=== PATIENT | male | born 1955 | race Caucasian/White ===

== ENCOUNTER 2017-09-27 09:56 | Inpatient (IN) | payer OTHER ==
[~2017-09-27] VITALS: Ht 177.8 cm; Wt 104.9 kg
--- NOTE | ~2017-09-27 | HC ---
[facility] [place] [address] CONSULTATION Name: QUINCY CORTES Room #: 241-P ADM IN M.R.#: [id number] Admission: 09/27/17 Attend Phys: Jose Bryant MD Discharge: Date of : 57 Report #: [id number] THIS REPORT FOR: //name// CC: JOSE DE JESUS physician/PCP Jose Bryant DATE OF SERVICE: 10/01/2017 REASON FOR EVALUATION: Bacteremia. HISTORY OF PRESENT ILLNESS: The patient is a 62-year-old admitted with substernal chest pain of several hours duration on 09/27/2017. He was found to be hyperthyroid along with stable coronary vascular stenosis that was felt to be amenable to medical management. He has had previous stents. Continued to have chest pain. CT scan imaging failed to identify any cause of his pain. He does have some bronchiectasis without acute infiltrate. Echocardiogram and CT showed no evidence of pericarditis. The patient has failed to improve with nonsteroidal anti-inflammatories and corticosteroids. Also, was given colchicine. Hyperthyroidism is being managed by endocrinology service. He is on metoprolol, corticosteroids, and methimazole. He did undergo a contrast imaging without issue. The patient denies any fever, but he has had occasional chills and sweats. He remains fairly nervous about his condition. No cough or sputum production. No nausea, vomiting or diarrhea. No dysuria or frequency. He has had no abdominal discomfort. During his evaluation, blood cultures were done, showing Gram-positive cocci. Identification is pending. He was started on vancomycin yesterday. ALLERGIES: CONTRAST DYE and PENICILLIN. MEDICATIONS: As noted on his MAR including the vancomycin. Also, on Solu-Medrol. PAST MEDICAL HISTORY: Coronary stents, chronic back pain, back surgery, colon resection, cholecystectomy, arthroscopic knee surgeries, hip surgery, and SVT. FAMILY HISTORY: Noncontributory. SOCIAL HISTORY: Past smoker, no significant alcohol intake. REVIEW OF SYSTEMS: Ten-point review was negative other than what is described above. Does have some anxiety associated with his disease currently, but no longstanding issues of anxiety or depression. PHYSICAL EXAMINATION: VITAL SIGNS: He is afebrile, hemodynamically stable. GENERAL: Alert, cooperative, in no acute distress. [address] [address] CONSULTATION Name: QUINCY CORTES Room #: 241-P [facility] IN M.R.#: [id number] Admission: 09/27/17 Attend Phys: Jose Bryant MD Discharge: Date of : 57 Report #: [id number] SKIN: Unremarkable. LYMPH: Unremarkable. EYES: Unremarkable. MOUTH: Unremarkable. NECK: Supple. He had some fullness in the anterior neck with no tenderness and no adenopathy. No mass. LUNGS: Clear. No adventitious sounds. He did have pain in the left chest on deep inspiration. I did not appreciate any rub. HEART: Normal with normal carotid upstrokes. No murmur, gallop, or rub. ABDOMEN: Soft, nontender, no hepatosplenomegaly or mass. No pulsatile masses. He was moderately obese. EXTREMITIES: Unremarkable. NEUROLOGIC: Nonfocal. GENITAL: Not performed. RECTAL: Not performed. PSYCHIATRIC: Mood was appropriate, although was anxious about his condition. LABORATORY STUDIES: Sodium 141, potassium 3.3, bicarbonate 28, creatinine 1.1, alkaline phosphatase 130, ALT 34. Hemoglobin 14.8, white count 9.4, platelet count was 176,000. Sed rate 4. TSH 0.011. Blood cultures as noted. CT scan of the chest unremarkable except for basilar atelectasis and central bronchiectasis without consolidation. Images were reviewed and agreed with impression. IMPRESSION: 1. Noncardiac chest pain. 2. Bacteremia. I am suspecting contaminant at this time, but will need to await identification. So far, no evidence of subacute bacterial endocarditis. It was 1/2 cultures positive. No other findings of end-organ infection at this time. 3. The pleuritic chest pain seemed out of proportion to his exam. I would question whether this is musculoskeletal in nature. Concerning that steroids and anti-inflammatory medications have not resolved this issue. He has had full cardiac workup with no evidence of ischemia. 4. Hyperthyroidism. I would question whether some of his symptoms may be related to this. RECOMMENDATION: We will continue vancomycin pending culture results. We will await identification. Continue workup and management of his chest discomfort. <ELECTRONICALLY SIGNED> By: Wally Ruiz MD 10/02/172002 1121 1609 Wally Ruiz MD /nt
--- NOTE | ~2017-09-27 | CATHLAB ---
[place] [address] [facility] [facility] [place] [address] INVASIVE PROCEDURE REPORT Name: QUINCY CORTES Room #: 202-P ADM IN M.R.#: [id number] Admission: 09/27/17 Attend Phys: Jose Bryant, Discharge: Date of : 57 Date of Service: 09/28/17 1124 Report #: [id number] THIS REPORT FOR: //name// APPROVED REPORT Study performed: 09/28/2017 07:58:48 Patient Details Patient Status: In-Patient Room #: The patient is a 62 year-old male Event Personnel Ben Awan Lan Specialist, Lionel Izaguirre RN, Shimon Rice RN RN, Annabella Ho Sandifer, David Monitor Procedures Performed Left Heart Cath w/or w/o Coronaries [id number] [facility] Indication Abnormal ECG, Arrhythmia, Dyspnea, Unstable angina , Chest pain Risk Factors Hypercholesterolemia, Coronary Artery DiseaseHypertension Previous Procedures/Diagnoses Previous PCI Procedure Narrative The Right Groin^ was infiltrated with 1% Lidocaine subcutaneous anesthesia. A PINNACLE 4FR Sheath #[id number] sheath was inserted into the RFA^. Coronary angiography was performed using coronary diagnostic catheters. The right coronary system was accessed and visualized with a JR4 catheter. The left coronary system was accessed and visualized with a JL4 catheter. The left ventricle was accessed and visualized with a 9IGTAIL catheter. Left ventricular/Aortic Valve gradient assessed via catheter pullback. Left ventriculogram was performed in 30 degree projection. Hemostasis was obtained with manual pressure following sheath removal without any complications. The patient tolerated the procedure well and there were no complications associated with the procedure. There was no hematoma. Intraoperative Conscious Sedation Sedation start time: 8.22 Case end Time: 9.00 [facility] [address] [place] [address] INVASIVE PROCEDURE REPORT Name: QUINCY CORTES Room #: 202-P [facility] IN .R.#: [id number] Admission: 09/27/17 Attend Phys: Jose Bryant, Discharge: Date of : 57 Date of Service: 09/28/17 1124 Report #: [id number] Versed 1.5 mg Fluoro Time: 2.48 minutes Dose: DAP 6100 cGycm2 806 mGy Contrast Type and Amount: Visipaque 80 ml Coronary Angiography The patient's coronary anatomy is right dominant. Diagnostic Cath Left Main Patent vessel, no flow-limiting lesions. LAD There is mild to moderate diffuse disease in the mid segment, 30-40%. Diagonal 1 Small-caliber vessel, no flow-limiting lesions. Diagonal 2 There is a patent stent in the proximal segment, with mild restenosis. Circumflex Supplies 2 OM vessels. OM1 Small-caliber vessel, mild disease in the proximal segment. OM2 Moderate size caliber vessel, mild disease in the proximal segment. Right Coronary Dominant vessel with mild to moderate disease in the proximal segment, 30-40%. R PDA Patent vessel, no flow-limiting lesions. RPLV Patent vessel, no flow-limiting lesions. Left Ventriculography The left ventricle is normal in size with normal contractility. The left ventricular ejection fraction is estimated to be >55%. Hemodynamics The aortic pressure is 129/83 mmHg with a mean of 63 mmHg. The left ventricular pressure is 127/21 mmHg with a mean of mmHg. The left ventricular end diastolic pressure is 37 mmHg. There was no gradient across the aortic valve upon pullback. Pullback from the left ventricle to the aorta revealed no gradient across the aortic valve. Conclusion 1. Patent stent in the second diagonal artery. 2. Mild to moderate nonobstructive CAD. [facility] [address] [place] [address] INVASIVE PROCEDURE REPORT Name: QUINCY CORTES Room #: 202-P ADM IN M.R.#: [id number] Admission: 09/27/17 Attend Phys: Jose Bryant, Discharge: Date of : 57 Date of Service: 09/28/17 1124 Report #: [id number] 3. Normal LV systolic function. 4. Recommend aggressive risk factor management. <ELECTRONICALLY SIGNED> By: Ben Awan MD 09/28/17 1124 1124 112 Ben Awan MD /NOVA
--- NOTE | ~2017-09-27 | EKG ---
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 : 1955 Requested By: Kyler Tidwell Order Number: [id number] MD: Vernon Garcia Measurements Intervals [place] Rate: 161 P: 102 MD: 77 QRS: 67 QRSD: 100 T: 9 QT: 303 QTc: 496 Interpretive Statements Supraventricular tachycardia Repolarization abnormality, prob rate related Artifact in multiplelead(s) Compared to ECG 01/21/2015 06:45:54 Sinus tachycardia no longer present nonspecific change in the ST and T-wave segments Electronically Signed On 09-27-2017 16:52:32 CDT by Vernon Garcia [email or web address] <ELECTRONICALLY SIGNED> By: Vernon Garcia MD, [facility] 09/27/17 1652 0959 0959 Vernon Garcia MD, [facility] /EPI
--- NOTE | ~2017-09-27 | EKG ---
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 : 1955 Requested By: Vernon Garcia Order Number: [id number] MD: Vernon Garcia Measurements Intervals [place] Rate: 103 P: 35 [place]: 111 QRS: 13 QRSD: 90 T: 6 QT: 349 QTc: 457 Interpretive Statements Sinus tachycardia Early R-wave progression Compared to ECG 09/28/2017 07:16:15 Sinus rhythm no longer present Electronically Signed On 09-30-2017 13:55:28 CDT by Vernon Garcia [email or web address] <ELECTRONICALLY SIGNED> By: Vernon Garcia MD, [facility] 09/30/17 1355 08 08 Vernon Garcia MD, [facility] /EPI
--- NOTE | ~2017-09-27 | 2DMMODE ---
[facility] [address] [place] [address] 2 D/M-MODE ECHOCARDIOGRAM Name: QUINCY CORTES Room #: 202-P ADM IN M.R.#: [id number] Admission: 09/27/17 Attend Phys: Jose Bryant, Discharge: Date of : 57 Date of Service: 09/29/17 1302 Report #: [id number] THIS REPORT FOR: //name// APPROVED REPORT Study performed: 09/29/2017 10:26:32 EXAM: Comprehensive 2D, Doppler, and color-flow Echocardiogram Patient Location: Bedside Room #: 202 Status: on-call BSA: 2.27 HR: 107 bpm Rhythm: NSR Other Information Study Quality: Adequate Technically limited study due to pt. refused to complete the echo. Risk Factors: Cardiac Risk Factors: Hyperlipidemia, HTN Indications Dyspnea CAD Chest Pain 2D Dimensions LVEF(%): 60.00 (>50%) IVSd: 12.85 (7-11mm) LVOT Diam: 22.00 (18-24mm) LVDd: 50.92 mm PWd: 13.00 (7-11mm) Ascending Ao: 29.39 (22-36mm) LVDs: 30.26 (25-40mm) Aortic Root: 29.63 mm LV Single Plane 4CH: 59.42 % LV Single Plane 2CH: 55.00 % Omalley's LVEF: 57.21 % Biplane EF: 55.1 % Volumes Left Atrial Volume (Systole) Single Plane 4CH: 34.89 mL Single Plane 2CH: 50.48 mL LA ESV Index: 20.00 mL/m2 [facility] [address] [address] 2 D/M-MODE ECHOCARDIOGRAM Name: QUINCY CORTES Room #: 202-P ADM IN ..#: [id number] Admission: 09/27/17 Attend Phys: Jose Bryant, Discharge: Date of : 57 Date of Service: 09/29/17 1302 Report #: [id number] Pulmonary Valve PV Peak Lb.: 1.21 m/s PV Peak Gr.: 5.90 mmHg Left Ventricle The left ventricle is normal size. There is normal LV segmental wall motion. Mild to moderate concentric left ventricular hypertrophy. Left ventricular systolic function is normal. The left ventricular ejection fraction is within the normal range. LVEF is 55-60%. This study is not technically sufficient to allow evaluation of the LV diastolic function. Right Ventricle The right ventricle is normal size. The right ventricular systolic function is normal. Atria The left atrium size is normal. The right atrium size is normal. Aortic Valve The aortic valve mildly sclerotic, trileaflet No aortic regurgitation is present. There is no aortic valvular stenosis. Mitral Valve The mitral valve is normal in structure. Trace mitral regurgitation. No evidence of mitral valve stenosis. Tricuspid Valve The tricuspid valve is normal in structure, but was not fully evaluated. Pulmonic Valve The pulmonary valve is normal in structure. There is no pulmonic valvular regurgitation. Great Vessels The aortic root is normal in size. The IVC was not visualized. Pericardium The pericardium was not fully evaluated. No pericardial effusion. <Conclusion> Left ventricular systolic function is normal. LVEF is 55-60%. [facility] [place] [address] 2 D/M-MODE ECHOCARDIOGRAM Name: QUINCY CORTES Room #: 202-P ADM IN M.R.#: [id number] Admission: 09/27/17 Attend Phys: Jose Bryant, Discharge: Date of : 57 Date of Service: 09/29/17 1302 Report #: [id number] There is normal LV segmental wall motion. The aortic valve mildly sclerotic, trileaflet. No aortic regurgitation or stenosis The mitral valve is normal in structure. Trace mitral regurgitation. The pericardium was not fully evaluated. No pericardial effusion on limited exam. <ELECTRONICALLY SIGNED> By: Vernon Garcia MD, [facility] 09/29/17 1302 1302 1302 Vernon Garcia MD, [facility] /INF
--- NOTE | ~2017-09-27 | EKG ---
[address] [address] ELECTROCARDIOGRAM REPORT Name: QUINCY CORTES Room #: 241-P ADM IN M.R.#: [id number] Admission: 09/27/17 Attend Phys: Jose Bryant MD Discharge: Date of : 57 Report #: [id number] THIS REPORT FOR: //name// [facility] Test Date: 2017-10-03 Test Time: 13:29:55 Pat Name: QUINCY CORTES Department: Room: 241 P Gender: M General Manager: Susan EDWARDS : 1955 Requested By: Jose Bryant Order Number: [id number] MD: Vernon Garcia Measurements Intervals [place] Rate: 98 P: 67 [place]: 123 QRS: 44 QRSD: 86 T: 34 QT: 353 QTc: 451 Interpretive Statements Sinus rhythm Abnormal R-wave progression, early transition Minimal ST depression, anterolateral leads Baseline wander in lead(s) V2 Compared to ECG 09/30/2017 08:01:15 No significant change was found Electronically Signed On 10-03-2017 17:22:45 CDT by Vernon Garcia [email or web address] <ELECTRONICALLY SIGNED> By: Vernon Garcia MD, [facility] 10/03/17 1722 1329 1329 Vernon Garcia MD, [facility] /EPI
--- NOTE | ~2017-09-27 | EKG ---
[address] [address] ELECTROCARDIOGRAM REPORT Name: QUINCY CORTES Room #: 211-P ADM IN M.R.#: [id number] Admission: 09/27/17 Attend Phys: Jose Bryant MD Discharge: Date of : 57 Report #: [id number] THIS REPORT FOR: //name// [facility] Test Date: 2017-09-27 Test Time: 17:22:50 Pat Name: QUINCY CORTES Department: Room: 211 P Gender: M Configuration Developer: Karen MARTINEZ : 1955 Requested By: Suleiman Gibson Order Number: [id number] MD: Vernon Garcia Measurements Intervals [place] Rate: 99 P: 47 [place]: 135 QRS: 41 QRSD: 81 T: 43 QT: 345 QTc: 443 Interpretive Statements Sinus rhythm Borderline T wave abnormalities Baseline wander in lead(s) V3 Compared to ECG 09/27/2017 09:59:04 ST segment abnormality less pronounced Supraventricular tachycardia no longer present Electronically Signed On 09-28-2017 8:08:13 CDT by Vernon Garcia [email or web address] <ELECTRONICALLY SIGNED> By: Vernon Garcia MD, [facility] 09/28/17 0808 172 172 Vernon Garcia MD, [facility] /EPI
--- NOTE | ~2017-09-27 | HC ---
[facility] [place] [address] CONSULTATION Name: QUINCY CORTES Room #: 211-P ADM IN M.R.#: [id number] Admission: 09/27/17 Attend Phys: Jose Bryant MD Discharge: Date of : 57 Report #: [id number] THIS REPORT FOR: //name// CC: JOSE DE JESUS physician/PCP Jose Bryant DATE OF SERVICE: 09/27/2017 ENDOCRINE CONSULTATION LOCATION: [facility], room 211. This dictation will be done in a problem-oriented fashion. SUBJECTIVE: Acute admission for this 62-year-old white male admitted with chest pain, tachycardia and hypertension. The patient was discovered to have abnormal thyroid function studies. Retrospectively, he was noted to have a suppressed TSH several years ago, but he is not aware of any further evaluation or therapy. He has a mother who has some sort of unknown thyroid element, most likely hypothyroidism for which she takes replacement. The patient denies any changes in irritability, vision, weight, insomnia, tachycardia, bowel habits, etc. and has generally been clinically euthyroid. He does have occasional episodes of anxiety with a feeling of his heart beating in his chest, but this is usually during rodeo competition. He had 1 episode starting yesterday evening associated with chest pain that also was the cause for admission. Otherwise, he has no pertinent endocrine history, but he has been premedicated and is a very poor historian. His significant other offers no other further clinical information to report at this time. The patient is currently not on beta blockers. OBJECTIVE: LABORATORY DATA: TSH 0.01, free T4 from January 2015 was 1.3. At that time, TSH was 0.028. PHYSICAL EXAMINATION: GENERAL: Well-nourished, well-developed 62-year-old white male, in no acute distress. VITAL SIGNS: The patient is afebrile, heart rate 120, blood pressure 165/82. SKIN: Warm and moist. HEENT: PERRL. There is no evident ophthalmopathy. Deep tendon reflexes are 2+ and equal bilaterally without tremor. The thyroid is diffusely slightly enlarged without nodularity or adenopathy and moves well with deglutition. The remainder of the exam is difficult due to lack of patient cooperation, but [address] [address] CONSULTATION Name: QUINCY CORTES Room #: 211-P [facility] IN M.R.#: [id number] Admission: 09/27/17 Attend Phys: Jose Bryant MD Discharge: Date of : 57 Report #: [id number] appears to be clinically euthyroid. ASSESSMENT: Abnormal thyroid function studies, most likely indicating hyperthyroidism. PLAN: 1. I have discussed as best I can particularly with his significant other the physiology, pathophysiology, diagnosis and treatment of thyroid disease including the three methods of therapy (surgery, radioiodine, antithyroid drugs). 2. At this time, surgery is obviously not indicated. Radioiodine would be the patient's best choice; however, he is scheduled for cardiac catheterization in the morning during which he will receive iodine contrast obviating the ability to either diagnose or treat thyroid conditions with radioiodine, therefore antithyroid drugs are the only available therapy, but they do not do anything to inhibit preformed thyroid hormone and will take months to become effective. Meanwhile, high dose beta blockers and also the corticosteroids used for prevention of allergic reaction with tomorrow's catheterization are the only appropriate therapies to reduce T4-T3 conversion and increase safety of the patient's diagnostic and therapeutic maneuvers while he is hyperthyroid. Thank you very much for this consultation. I will continue to follow the patient with you for diagnosis and management of hyperthyroidism. <ELECTRONICALLY SIGNED> By: Fred Wells MD 09/27/17 2218 1527 21 Fred Wells MD /nt
--- NOTE | ~2017-09-27 | HC ---
[facility] [place] [address] CONSULTATION Name: QUINCY CORTES Room #: 241-P [facility] IN M.R.#: [id number] Admission: 09/27/17 Attend Phys: Jose Bryant MD Discharge: Date of : 57 Report #: [id number] THIS REPORT FOR: //name// CC: JOSE DE JESUS physician/PCP Jose Bryant DATE OF SERVICE: 10/03/2017 REASON FOR CONSULTATION: Hypertension. REASON FOR PRESENTATION: Chest pain. HISTORY OF PRESENT ILLNESS: A 62-year-old with sudden onset of chest pain before his presentation to the Emergency Room. He carries a diagnosis of coronary artery disease with stent back in [address] [facility]. Chest pain was described as stabbing with radiation to the shoulder blade. This also has gone down his left upper arm. No jaw or neck radiation. He tells me that he is not taking any blood pressure medications as his blood pressure started to get better without any medications; however, it is listed that he has been taking diltiazem and carvedilol because of some SVT in the past. When the patient presented to the emergency room, his blood pressure was elevated at 180/126. He continues to have major issues with his blood pressure. He had extensive workup for his chest pain including CT abdomen and pelvis, cardiac catheterization and most of those were nonrevealing. He was found to have thyroid disease, and endocrinology was consulted. He is not aware of any previous kidney problems. He has never been told that he has malignant hypertension in the past. He does have history of SVT in the past. Thyroid studies were consistent with hyperparathyroidism. Blood pressure has been fluctuating and I am being asked to evaluate and assist with his blood pressure issues. He continues to have major issues with his chest pain. Workup has been unrevealing so far. Pheochromocytoma workup has been sent. He is currently maintained on lisinopril and metoprolol along with the [facility]. PAST MEDICAL HISTORY: 1. Hypertension. 2. Coronary artery disease. 3. Hyperthyroidism. 4. History of cardiac stents. 5. History of colon resections. 6. Two back surgeries. 7. Cholecystectomy. 9. Arthroscopic evaluation of bilateral knee. 10. SVT. 11. Chronic pain. REVIEW OF SYSTEMS: [address] [address] CONSULTATION Name: QUINCY CORTES Room #: 241-P [facility] IN M.R.#: [id number] Admission: 09/27/17 Attend Phys: Jose Bryant MD Discharge: Date of : 57 Report #: [id number] GENERAL: No fever or chills. CARDIOVASCULAR: As per the history of present illness. PULMONARY: No cough or hemoptysis. GASTROINTESTINAL: Occasional nausea. GENITOURINARY: No frequency, no urgency. MUSCULOSKELETAL: Back pain. SKIN: No rash or ulcerations. NEUROLOGICAL: Fatigue and weakness, but no dizziness. HEMATOLOGICAL AND LYMPHATIC: No epistaxis. No easy bruisability. FAMILY HISTORY: Significant for hypertension. PHYSICAL EXAMINATION: GENERAL: Alert, oriented, in no apparent distress. VITAL SIGNS: Blood pressure is now 141/92. HEAD AND NECK: No jugular venous distention or bruit or thyromegaly. CHEST: Slight flushed anterior chest wall. No crackles. CARDIOVASCULAR: Regular, with no rub detected. ABDOMEN: Soft, nontender with no hepatosplenomegaly. LOWER EXTREMITIES: No edema with intact peripheral pulses. LABORATORY DATA: Reviewed. White blood cell count 13. Chemistry: Sodium 145, potassium 3.6, there were three low potassium readings. Random aldosterone has not been sent. Plasma metanephrine pending. ASSESSMENT, IMPRESSION AND PLAN: 1. Hypertension. 2. Hyperthyroidism. 3. Chest pain with unknown source. 4. Chronic disease. 5. We will start the appropriate investigation for his hypertension including renin aldosterone. Doppler of both kidneys. 6. Pheochromocytoma workup, though I doubt he will have any of those. 7. Currently maintained on an angiotensin converting enzyme inhibitor, a beta deshawn, Norvasc and those seem to be appropriate for now. 8. Obtain urine studies. 9. The patient's symptoms are not fitting any specific pathological process. I will send connective tissue disorders along with vasculitis given his nonspecific symptoms. 10. Urine drug screen. 11. Urine protein to creatinine ratio. 12. Avoid p.r.n. medication for his hypertension. 13. Low salt diet. [address] [address] CONSULTATION Name: QUINCY CORTES Room #: 241-P [facility] IN M.R.#: [id number] Admission: 09/27/17 Attend Phys: Jose Bryant MD Discharge: Date of : 57 Report #: [id number] 14. We will defer the management of his thyroid issues to the endocrinology team. By: 1033 0202 Emily Hawley MD /nt
--- NOTE | ~2017-09-27 | EKG ---
[address] [address] ELECTROCARDIOGRAM REPORT Name: QUINCY CORTES Room #: 211-P ADM IN M.R.#: [id number] Admission: 09/27/17 Attend Phys: Jose Bryant MD Discharge: Date of : 57 Report #: [id number] THIS REPORT FOR: //name// [facility] Test Date: 2017-09-28 Test Time: 07:16:15 Pat Name: QUINCY CORTES Department: Room: 211 P Gender: M Nursing Instructor: OSMANY : 1955 Requested By: Sparkle Wren Order Number: [id number] MD: Vernon Garcia Measurements Intervals [place] Rate: 90 P: 61 [place]: 134 QRS: 43 QRSD: 84 T: 36 QT: 373 QTc: 457 Interpretive Statements Sinus rhythm Abnormal R-wave progression, early transition Compared to ECG 09/27/2017 09:59:04 No significant change was found Electronically Signed On 09-28-2017 8:22:31 CDT by Vernon Garcia [email or web address] <ELECTRONICALLY SIGNED> By: Vernon Garcia MD, [facility] 09/28/17821 5 5 Vernon Garcia MD, [facility] /EPI
--- NOTE | ~2017-09-27 | EKG ---
[address] [address] ELECTROCARDIOGRAM REPORT Name: QUINCY CORTES Room #: 211-P ADM IN M.R.#: [id number] Admission: 09/27/17 Attend Phys: Jose Bryant MD Discharge: Date of : 57 Report #: [id number] THIS REPORT FOR: //name// [facility] Test Date: 2017-09-27 Test Time: 22:13:56 Pat Name: QUINCY CORTES Department: Room: 211 P Gender: M Yacht Hand: Karen MARTINEZ : 1955 Requested By: Suleiman Gibson Order Number: [id number] MD: Vernon Garcia Measurements Intervals [place] Rate: 106 P: 40 [place]: 137 QRS: 36 QRSD: 79 T: 3 QT: 330 QTc: 439 Interpretive Statements Sinus tachycardia Abnormal R-wave progression, early transition Borderline T wave abnormalities Compared to ECG 09/27/2017 09:59:04 No significant change was found Electronically Signed On 09-28-2017 8:13:05 CDT by Vernon Garcia [email or web address] <ELECTRONICALLY SIGNED> By: Vernon Garcia MD, FACC 09/28/17 0813 2213 2213 Vernon Garcia MD, [facility] /EPI
[~2017-09-27 09:56] MED LIST: AMLODIPINE BESY10 MG PO; APAP500 PO; ASPIR 8181 MG PO; ATORVASTATIN CA40 MG PO; CARDIZEM60 MG; CELEBREX 200 M200 M1 PO; COREG25 MG; DILTIAZEM ER300 M1 PO; HYDROCODONE-AP1 EAC6 PO; HYDROCODONE-APA1 TA1 PO; LYRICA 50 MG50 MG PO; MEDROLDOSEPACK PO; METAXALONE800 MG PO; METOCLOPRAMIDE10 MG PO; METOPROLOL TART25 MG PO; NEURONTIN 300300 M1 PO; NITROGLYCERIN0.4 MG SUBLING; NORVASC5 MG; PERCOCET; PERCOCET PO; PHENERGAN 25 MG25 M1 PO; PLAVIX 75 MG TA75 M1 PO; PLAVIX 75 MG TA75 MG PO; PROTONIX40 M1 PO; REGLAN 10 MG TA10 MG; SENOKOT-S1 TA1 PO
[2017-09-27 09:57] VITALS: BP 200/100
[2017-09-27 10:23] LABS: ABSOLUTE NEUTROPHILS 7.7 thou/uL (1.4-8.2); BASOPHILS 0.4 % (0.0-2.0); EOSINOPHILS 0.4 % (0.0-3.0); HEMATOCRIT 47.4 % (42.0-52.0); HEMOGLOBIN 15.5 gm/dL (14.0-18.0); LYMPHOCYTES 8.3 % (24.0-44.0); MCH 26.6 pg (26.0-34.0); MCHC 32.8 g/dL (28.0-37.0); MCV 81.2 fL (80.0-100.0); MONOCYTES 9.1 % (1.0-8.0); PLATELET COUNT 195 thou/uL (150-400); POLYS 81.8 % (36.0-66.0); RBC 5.83 mil/uL (4.50-6.00); RDW 16.9 % (10.5-14.5); WBC 9.4 thou/uL (4.0-11.0)
[2017-09-27 10:37] LABS: APTT 29.5 Seconds (24.5-32.8)
[2017-09-27 10:38] LABS: ANION GAP 14 mmol/L (7-16); BUN 10 mg/dL (7-18); CALCIUM 9.3 mg/dL (8.5-10.1); CHLORIDE 104 mmol/L (98-107); CO2 21 mmol/L (21-32); CREATININE 1.3 mg/dL (0.7-1.3); GLUCOSE 255 mg/dL (74-106); POTASSIUM 3.6 mmol/L (3.5-5.1); SODIUM 139 mmol/L (136-145)
[2017-09-27 10:59] LABS: ALBUMIN 3.9 g/dL (3.4-5.0); MAGNESIUM 1.8 mg/dL (1.8-2.4); SGOT 20 U/L (15-37); SGPT 34 U/L (30-65); TOTAL BILIRUBIN 0.3 mg/dL (<0.1-1.0); TOTAL PROTEIN 7.2 g/dL (6.4-8.2); TROPONIN-I <0.06 ng/mL (<0.06)
[2017-09-27 12:13] VITALS: BP 150/87
[2017-09-27 12:19] LABS: ALBUMIN 3.8 g/dL (3.4-5.0); TOTAL PROTEIN 7.3 g/dL (6.4-8.2)
[2017-09-27 12:57] LABS: AMP/METHAMP Negative (Negative); BARBITURATES Negative (Negative); BENZODIAZEPINES Negative (Negative); COCAINE Negative (Negative); METHADONE Negative (Negative); OPIATES POSITIVE (Negative); PCP Negative (Negative)
[2017-09-27 13:00] VITALS: BP 163/112
[2017-09-27 15:43] VITALS: BP 146/82
[2017-09-27 20:45] VITALS: BP 149/81
[2017-09-28] VITALS (7 sets, daily range): BP systolic 112–171; BP diastolic 65–107
[2017-09-28 05:30] LABS: HEMATOCRIT 41.6 % (42.0-52.0); MCHC 32.2 g/dL (28.0-37.0); MCV 80.8 fL (80.0-100.0); RBC 5.15 mil/uL (4.50-6.00); RDW 16.8 % (10.5-14.5)
[2017-09-28 05:37] LABS: HEMOGLOBIN 13.4 gm/dL (14.0-18.0)
[2017-09-28 05:38] LABS: CREATININE 1.4 mg/dL (0.7-1.3)
[2017-09-29 05:15] VITALS: BP 159/107
[2017-09-29 06:10] LABS: HEMATOCRIT 40.9 % (42.0-52.0); HEMOGLOBIN 13.2 gm/dL (14.0-18.0); MCH 26.1 pg (26.0-34.0); MCHC 32.2 g/dL (28.0-37.0); MCV 81.3 fL (80.0-100.0); RBC 5.03 mil/uL (4.50-6.00); RDW 17.1 % (10.5-14.5); WBC 15.2 thou/uL (4.0-11.0)
[2017-09-29 06:28] LABS: CALCIUM 9.1 mg/dL (8.5-10.1); CREATININE 1.1 mg/dL (0.7-1.3); MAGNESIUM 2.4 mg/dL (1.8-2.4); POTASSIUM 3.8 mmol/L (3.5-5.1)
[2017-09-29 08:27] VITALS: BP 170/117
[2017-09-29 12:46] VITALS: BP 182/96
[2017-09-29 16:58] VITALS: BP 154/110
[2017-09-29 19:05] VITALS: BP 152/114
[2017-09-30 02:03] LABS: HEMATOCRIT 41.1 % (42.0-52.0); HEMOGLOBIN 13.3 gm/dL (14.0-18.0); MCH 26.1 pg (26.0-34.0); MCHC 32.3 g/dL (28.0-37.0); MCV 80.9 fL (80.0-100.0); RBC 5.09 mil/uL (4.50-6.00); RDW 17.1 % (10.5-14.5); WBC 17.7 thou/uL (4.0-11.0)
[2017-09-30 02:13] LABS: CALCIUM 8.4 mg/dL (8.5-10.1); MAGNESIUM 2.2 mg/dL (1.8-2.4); POTASSIUM 3.4 mmol/L (3.5-5.1)
[2017-09-30 05:35] VITALS: BP 141/81
[2017-09-30 08:14] VITALS: BP 135/119
[2017-09-30 11:30] VITALS: BP 164/111
[2017-09-30 15:19] VITALS: BP 187/117
[2017-09-30 20:22] VITALS: BP 180/126
[2017-09-30 22:25] VITALS: BP 164/129
[2017-10-01 04:50] VITALS: BP 152/68
[2017-10-01 05:52] LABS: HEMATOCRIT 45.2 % (42.0-52.0); HEMOGLOBIN 14.8 gm/dL (14.0-18.0); MCH 26.3 pg (26.0-34.0); MCHC 32.7 g/dL (28.0-37.0); MCV 80.3 fL (80.0-100.0); RBC 5.63 mil/uL (4.50-6.00); RDW 16.5 % (10.5-14.5); WBC 9.4 thou/uL (4.0-11.0)
[2017-10-01 06:11] LABS: CALCIUM 8.5 mg/dL (8.5-10.1); CREATININE 1.1 mg/dL (0.7-1.3); MAGNESIUM 2.2 mg/dL (1.8-2.4); POTASSIUM 3.3 mmol/L (3.5-5.1)
[2017-10-01 07:24] VITALS: BP 206/136
[2017-10-01 11:17] VITALS: BP 172/119
[2017-10-01 15:16] VITALS: BP 146/99
[2017-10-01 19:58] VITALS: BP 210/139
[2017-10-02] VITALS (18 sets, daily range): BP systolic 100–215; BP diastolic 54–141
[2017-10-02 11:44] LABS: HEMATOCRIT 47.3 % (42.0-52.0); HEMOGLOBIN 15.3 gm/dL (14.0-18.0); MCH 25.9 pg (26.0-34.0); MCHC 32.2 g/dL (28.0-37.0); MCV 80.3 fL (80.0-100.0); RBC 5.89 mil/uL (4.50-6.00); RDW 16.7 % (10.5-14.5); WBC 17.4 thou/uL (4.0-11.0)
[2017-10-02 11:59] LABS: ALBUMIN 3.5 g/dL (3.4-5.0); CALCIUM 8.9 mg/dL (8.5-10.1); CREATININE 1.5 mg/dL (0.7-1.3); MAGNESIUM 2.3 mg/dL (1.8-2.4); POTASSIUM 3.1 mmol/L (3.5-5.1); TOTAL BILIRUBIN 0.4 mg/dL (<0.1-1.0); TOTAL PROTEIN 6.6 g/dL (6.4-8.2)
[2017-10-03] VITALS (24 sets, daily range): BP systolic 87–173; BP diastolic 50–126
[2017-10-03 04:52] LABS: HEMOGLOBIN 13.9 gm/dL (14.0-18.0); MCHC 32.4 g/dL (28.0-37.0); MCV 80.3 fL (80.0-100.0); RBC 5.35 mil/uL (4.50-6.00); RDW 16.8 % (10.5-14.5)
[2017-10-03 05:06] LABS: CALCIUM 7.8 mg/dL (8.5-10.1); CREATININE 1.2 mg/dL (0.7-1.3); MAGNESIUM 2.3 mg/dL (1.8-2.4); POTASSIUM 3.5 mmol/L (3.5-5.1)
[2017-10-03 09:31] LABS: URINE BILIRUBIN NEGATIVE (Negative); URINE BLOOD NEGATIVE (Negative); URINE CLARITY CLEAR; URINE COLOR YELLOW; URINE GLUCOSE-RANDOM* TRACE (Negative); URINE KETONES NEGATIVE (Negative); URINE LEUKOCYTES NEGATIVE (Negative); URINE NITRITE NEGATIVE (Negative); URINE PROTEIN (DIPSTICK) NEGATIVE (Negative); URINE SPECIFIC GRAVITY 1.015 (1.005-1.035)
[2017-10-03 09:35] LABS: URINE CREATININE-RANDOM* 79.9 mg/dL
[2017-10-03 09:40] LABS: AMP/METHAMP Negative (Negative); BARBITURATES Negative (Negative); BENZODIAZEPINES Negative (Negative); COCAINE Negative (Negative); METHADONE Negative (Negative); OPIATES POSITIVE (Negative); PCP Negative (Negative)
[2017-10-04] VITALS (15 sets, daily range): BP systolic 91–143; BP diastolic 48–114
[2017-10-04 00:11] LABS: HIV ANTIBODY Non Reactive (Non Reactive)
[2017-10-04 05:12] LABS: HAV IgM AB (ANTI-HAV IgM) Negative (Negative); HEPATITIS B SURFACE AG Negative (Negative); HEPATITIS C VIRUS AB <0.1 (0.0-0.9)
[2017-10-04 07:52] LABS: ABSOLUTE NEUTROPHILS 7.1 thou/uL (1.4-8.2); BASOPHILS 0.1 % (0.0-2.0); EOSINOPHILS 1.8 % (0.0-3.0); HEMATOCRIT 39.8 % (42.0-52.0); HEMOGLOBIN 12.8 gm/dL (14.0-18.0); LYMPHOCYTES 12.1 % (24.0-44.0); MONOCYTES 7.5 % (1.0-8.0); PLATELET COUNT 116 thou/uL (150-400); POLYS 78.5 % (36.0-66.0); RBC 4.91 mil/uL (4.50-6.00); RDW 16.3 % (10.5-14.5); WBC 9.1 thou/uL (4.0-11.0)
[2017-10-04 08:06] LABS: ALBUMIN 2.1 g/dL (3.4-5.0); CALCIUM 6.2 mg/dL (8.5-10.1); CREATININE 0.7 mg/dL (0.7-1.3); PHOSPHORUS 2.9 mg/dL (2.5-4.9); TOTAL BILIRUBIN 0.3 mg/dL (<0.1-1.0); TOTAL PROTEIN 4.1 g/dL (6.4-8.2)
[2017-10-04 08:08] LABS: POTASSIUM 2.5 mmol/L (3.5-5.1)
[2017-10-04 08:09] LABS: MAGNESIUM 1.7 mg/dL (1.8-2.4)
[2017-10-04 08:40] LABS: TROPONIN-I <0.06 ng/mL (<0.06)
[2017-10-04 09:19] LABS: APTT 27.5 Seconds (24.5-32.8); PROTIME 10.4 Seconds (9.3-11.4)
[2017-10-04 14:27] LABS: MAGNESIUM 2.1 mg/dL (1.8-2.4); POTASSIUM 3.7 mmol/L (3.5-5.1)
[2017-10-04 16:07] LABS: COMPLEMENT-C3 76 mg/dL (82-167); COMPLEMENT-C4 14 mg/dL (14-44)
[2017-10-05 04:45] VITALS: BP 146/78
[2017-10-05 06:06] LABS: HEMATOCRIT 43.6 % (42.0-52.0); HEMOGLOBIN 14.1 gm/dL (14.0-18.0); MCH 26.3 pg (26.0-34.0); MCHC 32.4 g/dL (28.0-37.0); MCV 81.2 fL (80.0-100.0); RBC 5.37 mil/uL (4.50-6.00); RDW 16.5 % (10.5-14.5); WBC 9.3 thou/uL (4.0-11.0)
[2017-10-05 06:24] LABS: ALBUMIN 2.6 g/dL (3.4-5.0); CALCIUM 7.8 mg/dL (8.5-10.1); PHOSPHORUS 3.2 mg/dL (2.5-4.9); POTASSIUM 3.5 mmol/L (3.5-5.1)
[2017-10-05 08:01] VITALS: BP 189/115
[2017-10-05 13:13] LABS: KAPPA FREE LIGHT CHAINS 1.6 mg/L (3.3-19.4); KAPPA/LAMBDA RATIO 0.17 (0.26-1.65); LAMBDA FREE LIGHT CHAINS 9.2 mg/L (5.7-26.3)
[2017-10-05 13:28] LABS: URINE BILIRUBIN NEGATIVE (Negative); URINE BLOOD NEGATIVE (Negative); URINE CLARITY CLEAR; URINE COLOR YELLOW; URINE GLUCOSE-RANDOM* 2+ (Negative); URINE KETONES NEGATIVE (Negative); URINE LEUKOCYTES-REFLEX NEGATIVE (Negative); URINE NITRITE-REFLEX NEGATIVE (Negative); URINE PROTEIN (DIPSTICK) NEGATIVE (Negative); URINE SPECIFIC GRAVITY 1.025 (1.005-1.035); URINE UROBILINOGEN 0.2 E.U./dl (0.2-1.0)
[2017-10-05 13:57] VITALS: BP 160/100
[2017-10-05 17:20] VITALS: BP 150/79
[2017-10-05] MEDS ORDERED: LOPRESSOR100 M1 PO (18:11)
[2017-10-05] MEDS ORDERED: METHIMAZOLE5 MG PO (18:12)
[2017-10-05 19:16] VITALS: BP 141/83
[2017-10-05 23:10] LABS: METANEPHRINE-PL 58 pg/mL (0-62); NORMETANEPHRINE - PL 123 pg/mL (0-145)
[2017-10-06 05:10] VITALS: BP 101/63
[2017-10-08 13:11] LABS: ANA INTERPRETATION Negative (Negative)
== END 2017-10-06 09:16 | disposition home or self-care (01) | DRG 287 ==
LOC: ER 09:56 → EROBS 11:20 → 2N 11:20 → ICU 10-02 10:19 → 3W 10-04 15:20
PROVIDERS: Emergency Medicine; Hospitalist; Internal Medicine; Internal Medicine Endocrinology, Diabetes & Metabolism; Specialist
PROC: 05HY33Z Insertion of Infusion Device into Upper Vein, Percutaneous Approach (ICD-10-PCS; principal; 2017-09-27)
PROC: B2111ZZ Fluoroscopy of Multiple Coronary Arteries using Low Osmolar Contrast (ICD-10-PCS; 2017-09-28)
PROC: B2151ZZ Fluoroscopy of Left Heart using Low Osmolar Contrast (ICD-10-PCS; 2017-09-28)
PROC: 4A023N7 Measurement of Cardiac Sampling and Pressure, Left Heart, Percutaneous Approach (ICD-10-PCS; 2017-09-28)
DX: R07.89 Other chest pain (principal); I47.1 Supraventricular tachycardia; I16.1 Hypertensive emergency; E87.6 Hypokalemia; F41.1 Generalized anxiety disorder; D72.829 Elevated white blood cell count, unspecified; I25.10 Atherosclerotic heart disease of native coronary artery without angina pectoris; I10 Essential (primary) hypertension; E05.90 Thyrotoxicosis, unspecified without thyrotoxic crisis or storm; E66.09 Other obesity due to excess calories; E78.5 Hyperlipidemia, unspecified; E03.9 Hypothyroidism, unspecified; Z68.33 Body mass index [BMI] 33.0-33.9, adult; I25.2 Old myocardial infarction; Z95.5 Presence of coronary angioplasty implant and graft; Z90.49 Acquired absence of other specified parts of digestive tract; Z87.891 Personal history of nicotine dependence; Z79.899 Other long term (current) drug therapy; Z88.0 Allergy status to penicillin; Z91.041 Radiographic dye allergy status
CPT/HCPCS: 10078; 10081; 10879; 27000

== ENCOUNTER 2017-10-08 08:03 | Inpatient (IN) | payer OTHER ==
[~2017-10-08] VITALS: Ht 177.8 cm; Wt 109.3 kg
--- NOTE | ~2017-10-08 | EKG ---
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: sophy : 1955 Requested By: Vianney Teague Order Number: [id number] MD: Vernon Garcia Measurements Intervals [place] Rate: 132 P: 70 [place]: 118 QRS: 55 QRSD: 144 T: 68 QT: 308 QTc: 457 Interpretive Statements Sinus tachycardia Nonspecific ST segment abnormality Artifact in lead(s) I,II,aVR,V1,V2,V3,V4,V5,V6 Compared to ECG 10/03/2017 13:29:55 No obvious differences on a very limited study Electronically Signed On 10-09-2017 8:51:21 CDT by Vernon Garcia [email or web address] <ELECTRONICALLY SIGNED> By: Vernon Garcia MD, [facility] 10/09/17 0851 0837 0837 Vernon Garcia MD, [facility] /EPI
--- NOTE | ~2017-10-08 | HC ---
[facility] [place] [address] CONSULTATION Name: QUINCY CORTES Room #: 214-P ADM IN M.R.#: [id number] Admission: 10/08/17 Attend Phys: Bravo Schulz MD Discharge: Date of : 57 Report #: [id number] THIS REPORT FOR: //name// CC: Bravo Schulz [facility] physician/PCP DATE OF SERVICE: 10/09/2017 Endocrine Consultation LOCATION: [facility], U room [address] Schulz's. SUBJECTIVE: One of multiple recent admissions for this 62-year-old white male with recurrent chest pain. The patient was dismissed several days ago after admission, which efforts were unable to discover the etiology of chest pain. At that time, the patient was found to have abnormal thyroid function studies and was placed on high dose metoprolol at 100 mg t.i.d. and methimazole 20 mg b.i.d. The patient states to me that he took the medication during his time-out of the hospital; however, he conveyed to the nurses that he did not know whether he took the medication or not. The patient has no interval information to provide, but apparently has had further episodes of chest pain necessitating hospitalization. The patient is extremely verbose repeating the same statements over and over. He has repeated questions regarding specific symptomatic aspects of his health and then asked whether this is due or not due to his hyperthyroidism. During the prior hospitalization, the patient had a full cardiac evaluation with heart catheterization etc, which was negative. He was seen for significant accelerated hypertension, which was controlled. The patient also had plasma metanephrines and normetanephrine drawn, which were within normal limits, although those results were not available at the time of hospital discharge. Otherwise, there is no change in interval endocrine status. OBJECTIVE: LABORATORY DATA: Unchanged. PHYSICAL EXAMINATION: GENERAL: Well-developed, obese, animated and verbose 62-year-old white male in no acute distress. VITAL SIGNS: Heart rate was significantly elevated at admission, is now approximately 94 and regular, blood pressure 140/100. SKIN: Warm and moist without abnormalities. HEENT: There is no ophthalmopathy. Deep tendon reflexes are 2+ and equal [facility] [address] [place] [address] CONSULTATION Name: QUINCY CORTES Room #: 214-P [facility] IN .R.#: [id number] Admission: 10/08/17 Attend Phys: Bravo Schulz MD Discharge: Date of : 57 Report #: [id number] bilaterally. The thyroid is unchanged and the remainder of the exam is euthyroid. ASSESSMENT: 1. Hyperthyroidism by thyroid function studies. 2. The patient is currently on high dose beta blockade and high dose methimazole, as the potential diagnosis and treatment with radioiodine has been aided by intravenous iodine contrast. PLAN: 1. I have discussed in detail with the patient that I am unable to ascertain which of his many symptoms are specifically caused by his hyperthyroidism and that he is currently receiving the maximum amount of therapy I am unable to provide both with antithyroid medication, as well as beta blockade. 2. Will continue to monitor the patient's clinical status and also repeat laboratory studies have indicated depending on the duration of the patient's hospitalization. Thank you very much for this consultation. I will continue to follow the patient with you for evaluation and management of hyperthyroidism. <ELECTRONICALLY SIGNED> By: Fred Wells MD 10/10/17 0122 1456 2250 Fred Wells MD /nt
--- NOTE | ~2017-10-08 | EKG ---
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: VALENTINE : 1955 Requested By: Vianney Teague Order Number: [id number] MD: Vernon Garcia Measurements Intervals [place] Rate: 115 P: 56 [place]: 123 QRS: 42 QRSD: 111 T: 34 QT: 334 QTc: 462 Interpretive Statements Sinus tachycardia Otherwise no significant abnormality Compared to ECG 10/03/2017 13:29:55 No obvious differences on previously technically limited study Electronically Signed On 10-09-2017 8:52:25 CDT by Vernon Garcia [email or web address] <ELECTRONICALLY SIGNED> By: Vernon Garcia MD, [facility] 10/09/17 0852 41 41 Vernon Garcia MD, [facility] /EPI
[~2017-10-08 08:03] MED LIST changes: +LOPRESSOR100 M1 PO; +METHIMAZOLE5 MG PO
[2017-10-08 08:10] VITALS: BP 221/124
[2017-10-08 08:29] LABS: ABSOLUTE NEUTROPHILS 9.6 thou/uL (1.4-8.2); BASOPHILS 0.9 % (0.0-2.0); EOSINOPHILS 1.6 % (0.0-3.0); HEMATOCRIT 49.2 % (42.0-52.0); HEMOGLOBIN 15.9 gm/dL (14.0-18.0); LYMPHOCYTES 6.9 % (24.0-44.0); MCH 26.2 pg (26.0-34.0); MCHC 32.3 g/dL (28.0-37.0); MCV 80.9 fL (80.0-100.0); MONOCYTES 9.2 % (1.0-8.0); PLATELET COUNT 170 thou/uL (150-400); POLYS 81.4 % (36.0-66.0); RBC 6.09 mil/uL (4.50-6.00); RDW 16.7 % (10.5-14.5); WBC 11.7 thou/uL (4.0-11.0)
[2017-10-08 08:40] LABS: ANION GAP 15 mmol/L (7-16); BUN 13 mg/dL (7-18); CALCIUM 9.2 mg/dL (8.5-10.1); CHLORIDE 104 mmol/L (98-107); CO2 23 mmol/L (21-32); CREATININE 1.5 mg/dL (0.7-1.3); GLUCOSE 155 mg/dL (74-106); POTASSIUM 3.4 mmol/L (3.5-5.1); SODIUM 142 mmol/L (136-145)
[2017-10-08 08:49] LABS: TROPONIN-I <0.06 ng/mL (<0.06)
[2017-10-08 10:19] LABS: APTT 27.5 Seconds (24.5-32.8); PROTIME 9.6 Seconds (9.3-11.4)
[2017-10-08 10:20] VITALS: BP 138/88
[2017-10-08 10:59] LABS: ALBUMIN 3.7 g/dL (3.4-5.0); DIRECT BILIRUBIN 0.1 mg/dL (<0.1-0.3); TOTAL BILIRUBIN 0.5 mg/dL (<0.1-1.0); TOTAL PROTEIN 7.3 g/dL (6.4-8.2)
[2017-10-08 11:26] VITALS: BP 129/70
[2017-10-08 11:32] VITALS: BP 132/74
[2017-10-08 16:41] VITALS: BP 148/96
[2017-10-08 16:56] LABS: AMP/METHAMP Negative (Negative); BARBITURATES Negative (Negative); BENZODIAZEPINES Negative (Negative); COCAINE Negative (Negative); METHADONE Negative (Negative); OPIATES Negative (Negative); PCP Negative (Negative)
[2017-10-08 19:33] VITALS: BP 137/87
[2017-10-09 00:04] VITALS: BP 132/85
[2017-10-09 04:33] VITALS: BP 148/113
[2017-10-09 08:00] VITALS: BP 145/108
[2017-10-09 16:08] VITALS: BP 112/75
[2017-10-09 20:02] VITALS: BP 117/74
[2017-10-10 05:41] VITALS: BP 130/84
[2017-10-10 08:02] VITALS: BP 168/112
[2017-10-10 09:02] VITALS: BP 168/112
== END 2017-10-10 09:28 | disposition home or self-care (01) | DRG 313 ==
LOC: ER 08:03 → EROBS 10:13 → 2N 10:13
PROVIDERS: Emergency Medicine
DX: R07.89 Other chest pain (principal); I25.10 Atherosclerotic heart disease of native coronary artery without angina pectoris; I16.0 Hypertensive urgency; E05.90 Thyrotoxicosis, unspecified without thyrotoxic crisis or storm; E78.5 Hyperlipidemia, unspecified; F41.9 Anxiety disorder, unspecified; I10 Essential (primary) hypertension; K21.9 Gastro-esophageal reflux disease without esophagitis; I25.2 Old myocardial infarction; Z87.828 Personal history of other (healed) physical injury and trauma; Z95.5 Presence of coronary angioplasty implant and graft; Z79.899 Other long term (current) drug therapy; Z87.891 Personal history of nicotine dependence; Z88.0 Allergy status to penicillin; Z91.041 Radiographic dye allergy status
CPT/HCPCS: 10081

== ENCOUNTER 2020-01-26 08:39 | Emergency (ER) | payer OTHER ==
[~2020-01-26] VITALS: Ht 188 cm; Wt 124.7 kg
--- NOTE | 2020-01-26 09:03 | EKG ---
[facility] [place] [address] ELECTROCARDIOGRAM REPORT Name: QUINCY CORTES Room #: [facility]..#: [id number] Admission: Attend Phys: Discharge: Date of : 57 Report #: [id number] THIS REPORT FOR: cc: JOSE DE JESUS Roberts family physician/PCP JOSE DE JESUS Roberts family physician/PCP Morgan Vyas MD [facility] ~ THIS REPORT FOR: //name// [facility] ED Test Date: 2020-01-26 Test Time: 08:43:49 Pat Name: QUINCY CORTES Department: Room: Gender: M Farm Adviser: kf : 1955 Requested By: Jonathon Villa Order Number: [id number] MD: Morgan Vyas Measurements Intervals [place] Rate: 112 P: 88 [place]: 129 QRS: 55 QRSD: 71 T: QT: 291 QTc: 397 Interpretive Statements Sinus tachycardia Ventricular premature complex Probable left atrial enlargement Repol abnrm suggests ischemia, anterolateral Baseline wander in lead(s) I,V2 Compared to ECG 10/08/2017 10:42:01 Ventricular premature complex(es) now present Early repolarization now present Possible ischemia now present Electronically Signed On 01-26-2020 9:03:49 MECHANICAL UNIT REPAIRER by Morgan Vyas [email or web address] <ELECTRONICALLY SIGNED> By: Morgan Vyas MD, FACC 01/26/2003 2 Morgan Vyas MD, FACC /EPI
[2020-01-26 09:44] LABS: ABSOLUTE NEUTROPHILS 5.8 thou/uL (1.4-8.2); BASOPHILS 0.7 % (0.0-2.0); EOSINOPHILS 1.6 % (0.0-3.0); HEMATOCRIT 48.6 % (42.0-52.0); HEMOGLOBIN 15.7 gm/dL (14.0-18.0); LYMPHOCYTES 11.6 % (24.0-44.0); MCH 28.7 pg (26.0-34.0); MCHC 32.2 g/dL (28.0-37.0); MONOCYTES 8.3 % (1.0-8.0); PLATELET COUNT 182 thou/uL (150-400); POLYS 77.8 % (36.0-66.0); RBC 5.46 mil/uL (4.50-6.00); RDW 15.6 % (10.5-14.5); WBC 7.5 thou/uL (4.0-11.0)
[2020-01-26 09:52] LABS: ANION GAP 9 mmol/L (7-16); BUN 10 mg/dL (7-18); CALCIUM 9.3 mg/dL (8.5-10.1); CHLORIDE 105 mmol/L (98-107); CO2 26 mmol/L (21-32); CREATININE 1.1 mg/dL (0.7-1.3); GLUCOSE 163 mg/dL (74-106); POTASSIUM 3.6 mmol/L (3.5-5.1); SODIUM 140 mmol/L (136-145)
[2020-01-26 10:01] LABS: ALBUMIN 3.6 g/dL (3.4-5.0); SGOT 27 U/L (15-37); SGPT 41 U/L (30-65); TOTAL BILIRUBIN 0.6 mg/dL (0.2-1.0); TOTAL PROTEIN 7.1 g/dL (6.4-8.2); TROPONIN-I <0.06 ng/mL (<0.06)
[2020-01-26 10:21] LABS: APTT 28.2 Seconds (24.5-32.8)
[2020-01-26 12:31] VITALS: BP 111/68
[2020-01-26 12:49] LABS: AMP/METHAMP Negative (Negative); BARBITURATES Negative (Negative); BENZODIAZEPINES Negative (Negative); COCAINE Negative (Negative); METHADONE Negative (Negative); OPIATES POSITIVE (Negative); PCP Negative (Negative)
--- NOTE | 2020-01-26 13:26 | EKG ---
[facility] [place] [address] ELECTROCARDIOGRAM REPORT Name: QUINCY CORTES Room #: [facility]#: [id number] Admission: 01/26/20 Attend Phys: Discharge: Date of : 57 Report #: [id number] THIS REPORT FOR: cc: JOSE DE JESUS - Alejandra family physician/PCP JOSE DE JESUS - Alejandra family physician/PCP Morgan Vyas MD [facility] THIS REPORT FOR: //name// [facility] ED Test Date: 2020-01-26 Test Time: 10:25:39 Pat Name: QUINCY CORTES Department: Room: Gender: Family Readiness Support Assistant: [facility] : 1955 Requested By: Juan Villa Order Number: [id number] MD: Morgan Vyas Measurements Intervals [place] Rate: 122 P: 67 [place]: 129 QRS: 17 QRSD: 87 T: -62 QT: 277 QTc: 395 Interpretive Statements Sinus tachycardia, artifact Probable left atrial enlargement Nonspecific repol abnormality, diffuse leads Compared to ECG 01/26/2020 08:43:49 Ventricular premature complex(es) no longer present Possible ischemia infero-lateral leads Electronically Signed On 01-26-2020 13:25:56 FINISHING RANGE SUPERVISOR by Morgan Vyas [email or web address] <ELECTRONICALLY SIGNED> By: Morgan Vyas MD, FACC 01/26/20 1325 1025 1025 Morgan Vyas MD, [facility] /EPI
== END 2020-01-26 13:25 | disposition left against medical advice (07) ==
LOC: ER 08:39
PROVIDERS: Emergency Medicine; Family Medicine
DX: R07.9 Chest pain, unspecified (principal); K21.9 Gastro-esophageal reflux disease without esophagitis; I25.2 Old myocardial infarction; I25.10 Atherosclerotic heart disease of native coronary artery without angina pectoris; Z90.49 Acquired absence of other specified parts of digestive tract; Z79.899 Other long term (current) drug therapy; Z87.891 Personal history of nicotine dependence; Z88.0 Allergy status to penicillin; Z91.041 Radiographic dye allergy status